=== PATIENT | male | born 1995 | race Hispanic/Latino ===

== ENCOUNTER → 2025-11-01 | Outpatient (CLI) | payer OTHER | LOC: M PLAIMG 08:10 | DX: M25.312 Other instability, left shoulder (principal); M19.012 Primary osteoarthritis, left shoulder; M25.412 Effusion, left shoulder; S43.492A Other sprain of left shoulder joint, initial encounter; X58.XXXA Exposure to other specified factors, initial encounter; Y92.9 Unspecified place or not applicable; Y93.9 Activity, unspecified; Y99.9 Unspecified external cause status ==